=== PATIENT | female | born 1970 ===

== ENCOUNTER 2020-07-06 14:05 | Emergency (ER) | payer OTHER ==
[~2020-07-06] VITALS: Ht 167.6 cm; Wt 113.4 kg
[2020-07-06] MEDS ORDERED: NAPROXEN500 MG PO (14:22)
[2020-07-06] MEDS ORDERED: METFORMIN HCL850 M1 PO (14:22)
[2020-07-06] MEDS ORDERED: ATORVASTATIN CA40 MG PO (14:22)
[2020-07-06] MEDS ORDERED: GLIPIZIDE ER10 MG PO (14:22)
[2020-07-06] MEDS ORDERED: LOSARTAN-HCTZ1 EAC2 PO (14:23)
[2020-07-07] MEDS ORDERED: VOLTAREN100 GM TOP (11:38)
[2020-07-07] MEDS ORDERED: IBUPROFEN800 MG PO (11:38)
[2020-07-07] MEDS ORDERED: CYCLOBENZAPRINE10 MG PO (11:38)
== END 2020-07-06 20:27 | disposition home or self-care (01) ==
LOC: ER 14:05
DX: M25.561 Pain in right knee (principal)

== ENCOUNTER 2020-07-07 07:55 | Emergency (ER) | payer OTHER ==
[~2020-07-07] VITALS: Ht 167.6 cm; Wt 104.3 kg
[~2020-07-07 07:55] MED LIST: ATORVASTATIN CA40 MG PO; GLIPIZIDE ER10 MG PO; LOSARTAN-HCTZ1 EAC2 PO; METFORMIN HCL850 M1 PO; NAPROXEN500 MG PO
[2020-07-07] MEDS ORDERED: CYCLOBENZAPRINE10 MG PO (11:38)
[2020-07-07] MEDS ORDERED: VOLTAREN100 GM TOP (11:38)
[2020-07-07] MEDS ORDERED: IBUPROFEN800 MG PO (11:38)
== END 2020-07-07 11:55 | disposition home or self-care (01) ==
LOC: ER 07:55
DX: I87.2 Venous insufficiency (chronic) (peripheral) (principal); M79.661 Pain in right lower leg

== ENCOUNTER 2023-11-09 08:31 | Outpatient (CLI) | payer OTHER ==
[~2023-11-09 08:31] MED LIST changes: +CYCLOBENZAPRINE10 MG PO; +IBUPROFEN800 MG PO; +VOLTAREN100 GM TOP
== END 2023-11-09 08:34 | disposition home or self-care (01) ==
LOC: SONOGRAMA 08:31
PROVIDERS: ATTEND Pathology Anatomic Pathology & Clinical Pathology
DX: D34 Benign neoplasm of thyroid gland (principal); E07.89 Other specified disorders of thyroid; E04.1 Nontoxic single thyroid nodule